=== PATIENT | male | born 1960 | race Caucasian/White ===

== ENCOUNTER → 2018-06-26 | Emergency (ER) | payer OTHER ==
[~2018-06-26] MED LIST: MORPHINE SULFATE 2 MG/ML VIAL ONE; morphine CARPU-JECT 2 MG/1 ML DISP.SYRIN IVPUSH ONE
[2018-06-26 19:23] VITALS: TEMP 98.4; BMI 38.4
--- NOTE | 2018-06-26 20:27 | PDOC ---
Attending Attestation - Resident Resident Name: Eleazar Anne - ED Attending Attestation I have performed the following: I have examined & evaluated the patient, The case was reviewed & discussed with the resident, I agree w/resident's findings & plan, Exceptions are as noted - HPI HPI: 06/26/18 20:23 57y M hx of asthma, copd, cad s/p cath, dvt s/p Ivc filter on xeralgo, spinal stenosis, lung ca s/p resection 2 months ago presents with episode of syncope in setting of standing up with ~5 min of LOC. No seizure like activity or incontinence. denies lighteahdedness, palpitations. endorses some nonradiationg midsternal chest pressure. +perineal TTP to L cervical spine and L lumbar spine L leg raise + normal gait cardiac: rrr, no mrg ddx: chronic back pain syncope: ekg/monitor to r/o arrythmia, labs to ro metabolic derangement consider acs - Physicial Exam PE: 06/26/18 21:30 see above - Medical Decision Making 06/26/18 21:23 pt requested to eat, but eloped shortly after we told him we would like to wait until after his imaging to rule out any acute problems
--- NOTE | 2018-06-26 20:43 | PDOC ---
History of Present Illness - General Chief Complaint: Chest Pain Stated Complaint: FALL Time Seen by Provider: 06/26/18 19:57 - History of Present Illness Initial Comments: 06/26/18 20:37 57 y/o M with PMH of athma, copd, DM, HTN, cardiac cath , multiple DVT RLE s/p IVC filter on xarelto, CA right lung s/p resection in [facility], spinal stenosis came to hospital because of syncopal episode which happen yesterday while he tried to stand. He reports he woke up after 5 minuter and the after few minutes again went to sleep. Denies irregular body movements, bleeding from mouth, tongue bite, bowel and fecal incontinence. Denies lightheadedness and palpitations. Reports today when he woke up he noticed a pain in his neck, numbness in his right leg and pain in right leg radiating from back to his leg. Denies urine incontinence. Didn't have bowel movement. Denies fever and chills. Past History - Past Medical History Allergies/Adverse Reactions: Allergies Allergy/AdvReac Type Severity Reaction Status Date / Time latex Allergy Severe Difficulty Verified 06/26/18 18:53 Breathing shellfish derived Allergy Verified 06/26/18 18:53 Home Medications: Ambulatory Orders Albuterol Sulfate Inhaler - [Ventolin HFA Inhaler -] 2 inh PO Q6H 04/12/15 Aspirin [ASA -] 81 mg PO DAILY 04/12/15 Doxazosin Mesylate 8 mg PO DAILY 04/12/15 Fluoxetine HCl [Prozac] 80 mg PO DAILY 04/12/15 Insulin Glargine,Hum.rec.anlog [Lantus (nf)] 30 units SQ HS 04/12/15 Insulin Lispro [Humalog] 100 unit SQ ASDIR 04/12/15 Ipratropium [place] [Atrovent Hfa] 12.9 gm IH DAILY PRN 04/12/15 Warfarin Sodium [Coumadin] 7 mg PO DAILY 04/12/15 metFORMIN HCL [Glucophage -] 1,000 mg PO BID 04/12/15 Atorvastatin Ca [Lipitor -] 10 mg PO HS 08/27/15 Cefuroxime Axetil [Ceftin] 500 mg PO BID #10 tablet 08/27/15 Cefuroxime Axetil [Cefuroxime] 500 mg PO BID 08/27/15 Clonazepam 1 mg PO TID 08/27/15 Enoxaparin Sodium [Lovenox] 80 mg SQ Q12H 08/27/15 Fluticasone/Salmeterol [Advair 250-50 Diskus] 1 each IH BID 08/27/15 Oxycodone HCl/Acetaminophen [Percocet 10-325 mg Tablet -] 1 - 2 tab PO Q4H 08/27 Oxycodone HCl/Acetaminophen [Percocet 5-325 mg Tablet -] 1 tab PO Q4H PRN #20 tablet 08/27/15 Tiotropium [place] [Spiriva -] 1 inh PO DAILY 08/27/15 Anemia: No Asthma: Yes Cancer: No Cardiac Disorders: Yes (CAD, [place] 1989 CARDIAC [id number]-DE STENTS) CVA: No COPD: Yes CHF: No Dementia: No Diabetes: Yes (IDDM) GI Disorders: No Disorders: No HTN: Yes Hypercholesterolemia: Yes Liver Disease: No Seizures: No Thyroid Disease: No - Surgical History Abdominal Surgery: No Appendectomy: No Cardiac Surgery: Yes (cardiac cath) Cholecystectomy: No Lung Surgery: No Neurologic Surgery: No Orthopedic Surgery: No - Immunization History Immunization Up to Date: No - Suicide/Smoking/Psychosocial Hx Smoking History: Current every day smoker Have you smoked in the past 12 months: Yes Number of Cigarettes Smoked Daily: 3 Information on smoking cessation initiated: No 'Breaking Loose' booklet given: 08/27/15 Hx Alcohol Use: No Drug/Substance Use Hx: No Substance Use Type: None Hx Substance Use Treatment: No Review of Systems - Review of Systems Constitutional: No: Chills, Diaphoresis, Fever HEENTM: No: Blurred Vision Respiratory: Yes: Cough, Wheezing, Other (reports chronic cough and wheezing ) Cardiac (ROS): Yes: Chest Pain, Syncope. No: Edema, Irregular Heart Rate, Lightheadedness, Palpitations : No: Burning, Discharge, Frequency, Flank Pain, Hematuria Musculoskeletal: Yes: Back Pain, Muscle Pain, Neck Pain Neurological: Yes: Numbness (right leg ). No: Seizure, Weakness *Physical Exam - Vital Signs Last Vital Signs Temp Pulse Resp BP Pulse Ox 98.4 F 74 18 130/80 99 06/26/18 18:53 06/26/18 18:53 06/26/18 18:53 06/26/18 18:53 06/26/18 18:53 - Physical Exam General Appearance: Yes: Appropriately Dressed HEENT: positive: EOMI, Normal Voice, Symmetrical Neck: positive: Tender (left paraspina area ), Trachea midline, Supple. negative: Rigidity Respiratory/Chest: positive: Lungs Clear, Wheezing (mild wheezing at bases, ). negative: Chest Tender, Respiratory Distress, Accessory Muscle Use Cardiovascular: positive: Regular Rhythm, Regular Rate, S1, S2. negative: Murmur Gastrointestinal/Abdominal: positive: Normal Bowel Sounds, Flat, Soft. negative : Guarding, Tenderness Musculoskeletal: positive: Normal Inspection. negative: CVA Tenderness Extremity: positive: Normal Inspection, Normal Range of Motion Neurologic: positive: academic services professional II-XII NML intact, Fully Oriented, Alert, Normal Mood/ Affect, Normal Response, Other (straight leg raising test positive, fine touch negative on right leg , able to stand and walk with cane ) ED Treatment Course - LABORATORY CBC & Chemistry Diagram: 06/26/18 20:40 06/26/18 20:40 - RADIOLOGY Radiology Studies Ordered: Category Date Time Status CERVICAL SPINE CT W/O CONTR [CT] Stat CT Scan 06/26/18 20:[address] WITHOUT CONTRAST [CT] Stat CT Scan 06/26/18 20:[address] W/O CONTRAST [CT] Stat CT Scan 06/26/18 20:16 Ordered CHEST - PA [RAD] Stat Radiology 06/26/18 20:17 Ordered HIP-RIGHT [RAD] Stat Radiology 06/26/18 20:18 Ordered Medical Decision Making - Medical Decision Making 06/26/18 20:47 57 y/o M with PMH of athma, copd, DM, HTN, cardiac cath , multiple DVT RLE s/p IVC filter on xarelto, CA right lung s/p resection in [facility], spinal stenosis came to hospital because of syncopal episode which happen yesterday while he tried to stand. He reports he woke up after 5 minuter and the after few minutes again went to sleep. Denies irregular body movements, bleeding from mouth, tongue bite, bowel and fecal incontinence. Denies lightheadedness and palpitations. Reports today when he woke up he noticed a pain in his neck, numbness in his right leg and pain in right leg radiating from back to his leg. Denies urine incontinence. Didn't have bowel movement. Denies fever and chills. we will get ct head, spine, xray hip. cbc/ cmp/ trop and ekg. orthostatic vitals no change. able to stand, walk and pee normal we will give him morphine for pain. 06/26/18 21:35 patient eloped *DC/Admit/Observation/Transfer Diagnosis at time of Disposition: Syncope Qualifiers: Syncope type: unspecified Qualified Code(s): R55 - Syncope and collapse - Discharge Dispostion Disposition: ELOPED - Referrals - Patient Instructions - Post Discharge Activity
[2018-06-26 20:48] LABS: BASO % 0.2 % (0-2.0); EOS % 1.4 % (0-4.5); HEMATOCRIT 46.2 % (35.4-49); HEMOGLOBIN 15.6 GM/dL (11.7-16.9); MCH 29.2 pg (25.7-33.7); MCHC 33.7 g/dl (32.0-35.9); MEAN CELL VOLUME 86.6 fl (80-96); MEAN PLT VOLUME 7.5 fl (7.5-11.1); MONO % 6.9 % (3.8-10.2); NEUT % 75.5 % (42.8-82.8); PLATELET COUNT 149 K/MM3 (134-434); RBC 5.33 M/mm3 (4.00-5.60); RDW 14.3 % (11.9-15.9); WHITE BLOOD COUNT 10.8 K/mm3 (4.0-10.0)
[2018-06-26 21:37] LABS: ALBUMIN 3.6 g/dl (3.4-5.0); ANION GAP 13 MMOL/L (8-16); BILIRUBIN,TOTAL 0.7 mg/dL (0.2-1.0); BLOOD UREA NITROGEN 65 mg/dL (7-18); CALCIUM 8.4 mg/dL (8.5-10.1); CHLORIDE 99 mmol/L (98-107); CO2 21 mmol/L (21-32); CREATININE 3.3 mg/dL (0.55-1.3); GLUCOSE,RANDOM 244 mg/dL (74-106); POTASSIUM 4.2 mmol/L (3.5-5.1); SGOT/AST 124 U/L (15-37); SGPT/ALT 61 U/L (13-61); SODIUM 133 mmol/L (136-145)
[2018-06-26 21:38] LABS: ALK PHOS 111 U/L (45-117)
[2018-06-26 22:49] VITALS: BP 130/75; PULSE 77
--- NOTE | 2018-06-27 21:26 | EKG ---
Test Reason : Blood Pressure : / mmHG Vent. Rate : 074 BPM Atrial Rate : 074 BPM P-R Int : 140 ms QRS Dur : 086 ms QT Int : 376 ms P-R-T Axes : 061 -06 062 degrees QTc Int : 417 ms NORMAL SINUS RHYTHM NONSPECIFIC T WAVE ABNORMALITY ABNORMAL ECG WHEN COMPARED WITH ECG OF 12-APR-2015 21:33, NO SIGNIFICANT CHANGE WAS FOUND Confirmed by JOHNNY QUEEN MD ([id number]) on 06/27/2018 9:25:52 PM Referred By: Confirmed By:JOHNNY QUEEN MD
== END | disposition left against medical advice (07) ==
LOC: JER 18:36
DX: R55 Syncope and collapse (principal); M54.2 Cervicalgia; M54.5 Low back pain; M79.604 Pain in right leg; I25.2 Old myocardial infarction; I25.10 Atherosclerotic heart disease of native coronary artery without angina pectoris; Z98.61 Coronary angioplasty status; I10 Essential (primary) hypertension; J44.9 Chronic obstructive pulmonary disease, unspecified; E11.9 Type 2 diabetes mellitus without complications; Z79.4 Long term (current) use of insulin; E70.0 Classical phenylketonuria; F17.210 Nicotine dependence, cigarettes, uncomplicated; Z85.118 Personal history of other malignant neoplasm of bronchus and lung; Z86.718 Personal history of other venous thrombosis and embolism; Z79.01 Long term (current) use of anticoagulants; Z95.828 Presence of other vascular implants and grafts
CPT/HCPCS: 36415; 80053; 84484; 85025; 93005; 93010; 99281-25

== ENCOUNTER 2019-03-18 21:28 | Observation (INO) | payer OTHER ==
[2019-03-18 21:38] VITALS: BMI 23.6
[2019-03-18] MEDS ORDERED: ALBUTEROL SO4 2.5/IPRATROPIUM 0.5 INH SOL 3 ML VIAL.NEB. NEB ONE (21:48)
[2019-03-18] MEDS: ALBUTEROL SO4 2.5/IPRATROPIUM 0.5 INH SOL 3 ML VIAL.NEB. NEB SCH ×4 (21:57→23:43)
--- NOTE | 2019-03-18 22:08 | PDOC ---
History of Present Illness - General History Source: Patient Exam Limitations: No Limitations - History of Present Illness Initial Comments: 03/18/19 22:29 58 year old male with PMH HTN, HLD, DM, CAD s/p CABG, multiple RLE DVT s/p IVC filter on AC, asthma, COPD, chronic back pain, spinal stenosis, TURP (2014) presented to ED for AMS. It was reported that patient ingested ETOH with Perocet today. Pt confirmed but was unable to specify how much ETOH or percocet he took. Denied suicidal/homicidal ideation. HPI/ROS limited by pt somnolence. <Marissa Franklin - Last Filed: 03/19/19 04:39> <Darshana Saenz - Last Filed: 03/19/19 05:00> - General Chief Complaint: Lethargy Stated Complaint: HYPOTENSION Time Seen by Provider: 03/18/19 21:37 Past History - Past Medical History Anemia: No Asthma: Yes Cancer: No Cardiac Disorders: Yes (CAD, [place] 1990 CARDIAC OAUW-[id number]-GM STENTS) CVA: No COPD: Yes CHF: No Dementia: No Diabetes: Yes (IDDM) GI Disorders: No Disorders: No HTN: Yes Hypercholesterolemia: Yes Liver Disease: No Seizures: No Thyroid Disease: No - Surgical History Abdominal Surgery: No Appendectomy: No Cardiac Surgery: Yes (cardiac cath) Cholecystectomy: No Lung Surgery: No Neurologic Surgery: No Orthopedic Surgery: No - Immunization History Immunization Up to Date: No - Suicide/Smoking/Psychosocial Hx Smoking History: Current every day smoker Have you smoked in the past 12 months: Yes Number of Cigarettes Smoked Daily: 20 Information on smoking cessation initiated: Yes 'Breaking Loose' booklet given: 08/27/15 Hx Alcohol Use: Yes Drug/Substance Use Hx: Yes Substance Use Type: None Hx Substance Use Treatment: No <Marissa Franklin - Last Filed: 03/19/19 04:39> <Darshana Saenz - Last Filed: 03/19/19 05:00> - Past Medical History Allergies/Adverse Reactions: Allergies Allergy/AdvReac Type Severity Reaction Status Date / Time latex Allergy Severe Difficulty Verified 03/18/19 21:38 Breathing shellfish derived Allergy Verified 03/18/19 21:38 Home Medications: Ambulatory Orders Albuterol Sulfate Inhaler - [Ventolin HFA Inhaler -] 2 inh PO Q6H 04/12/15 Aspirin [ASA -] 81 mg PO DAILY 04/12/15 Doxazosin Mesylate 8 mg PO DAILY 04/12/15 Fluoxetine HCl [Prozac] 80 mg PO DAILY 04/12/15 Insulin Glargine,Hum.rec.anlog [Lantus (nf)] 30 units SQ HS 04/12/15 Insulin Lispro [Humalog] 100 unit SQ ASDIR 04/12/15 Ipratropium [place] [Atrovent Hfa] 12.9 gm IH DAILY PRN 04/12/15 Warfarin Sodium [Coumadin] 7 mg PO DAILY 04/12/15 metFORMIN HCL [Glucophage -] 1,000 mg PO BID 04/12/15 Atorvastatin Ca [Lipitor -] 10 mg PO HS 08/27/15 Cefuroxime Axetil [Ceftin] 500 mg PO BID #10 tablet 08/27/15 Cefuroxime Axetil [Cefuroxime] 500 mg PO BID 08/27/15 Clonazepam 1 mg PO TID 08/27/15 Enoxaparin Sodium [Lovenox] 80 mg SQ Q12H 08/27/15 Fluticasone/Salmeterol [Advair 250-50 Diskus] 1 each IH BID 08/27/15 Oxycodone HCl/Acetaminophen [Percocet 10-325 mg Tablet -] 1 - 2 tab PO Q4H 08/27 Oxycodone HCl/Acetaminophen [Percocet 5-325 mg Tablet -] 1 tab PO Q4H PRN #20 tablet 08/27/15 Tiotropium [place] [Spiriva -] 1 inh PO DAILY 08/27/15 Review of Systems - Review of Systems Able to Perform ROS?: No (Pt is somnolent) <Marissa Franklin - Last Filed: 03/19/19 04:39> *Physical Exam - Vital Signs Last Vital Signs Temp Pulse Resp BP Pulse Ox 97.5 F L 87 16 111/70 95 03/18/19 21:31 03/18/19 21:31 03/18/19 21:31 03/18/19 21:31 03/18/19 21:31 - Physical Exam Comments: 03/18/19 22:27 Constitutional: Well-nourished, Well-developed, appearing stated age. HEENT: head is normocephalic, atraumatic. EOMI. PERRLA. Eyes: Pupils pinpoint bilaterally. Neck: supple. Full ROM. Heart: regular rhythm. no murmurs, rubs or gallops. Lungs: diffuse rhonchi bilaterally. Abdomen: soft, nontender. normal bowel sounds. no rebound, guarding, masses. Extremities: peripheral pulses intact. no lower extremity edema. Neurological: CN 2-12 grossly intact. moves all four extremities. Psych: somnolent but arousable to voice. oriented x3. follows commands. <Marissa Franklin - Last Filed: 03/19/19 04:39> - Vital Signs Last Vital Signs Temp Pulse Resp BP Pulse Ox 97.5 F L 79 13 116/86 97 03/18/19 21:31 03/19/19 03:43 03/19/19 03:43 03/19/19 03:43 03/19/19 03:43 <Darshana Saenz - Last Filed: 03/19/19 05:00> ED Treatment Course - LABORATORY CBC & Chemistry Diagram: 03/18/19 22:15 03/18/19 22:15 <Marissa Franklin - Last Filed: 03/19/19 04:39> - LABORATORY CBC & Chemistry Diagram: 03/18/19 22:15 03/18/19 22:15 - ADDITIONAL ORDERS Additional order review: Laboratory Results 03/19/19 03/18/19 03/18/19 00:08 22:15 22:15 PT with INR INR PTT (Actin FS) Sodium 136 Potassium 4.5 Chloride 104 Carbon Dioxide 24 Anion Gap 8 BUN 29.4 H Creatinine 1.7 H Est GFR (CKD-EPI)AfAm 49.70 Est GFR (CKD-EPI)NonAf 42.88 Random Glucose 251 H Calcium 8.4 L Phosphorus 4.5 Magnesium 2.1 Total Bilirubin 0.3 AST 18 ALT 21 Alkaline Phosphatase 102 Troponin I < 0.02 B-Natriuretic Peptide 335.7 H Total Protein 6.5 Albumin 3.2 L TSH 4.90 H Free T4 1.11 Salicylates 2.3 L Acetaminophen < 2.0 L Alcohol, Quantitative < 3.0 03/18/19 22:15 PT with INR 11.10 INR 0.94 PTT (Actin FS) 32.0 Sodium Potassium Chloride Carbon Dioxide Anion Gap BUN Creatinine Est GFR (CKD-EPI)AfAm Est GFR (CKD-EPI)NonAf Random Glucose Calcium Phosphorus Magnesium Total Bilirubin AST ALT Alkaline Phosphatase Troponin I B-Natriuretic Peptide Total Protein Albumin TSH Free T4 Salicylates Acetaminophen Alcohol, Quantitative 03/18/19 22:15 RBC 4.85 MCV 88.6 MCHC 33.9 RDW 14.1 MPV 6.8 L Neutrophils % 52.1 D Lymphocytes % 36.7 D Monocytes % 7.6 Eosinophils % 2.9 D Basophils % 0.7 D - Medications Given in the ED: ED Medications Discontinued Medications Generic Name Dose Route Start Last Admin Trade Name Freq PRN Reason Stop Dose Admin Albuterol/Ipratropium 1 amp 03/18/19 21:45 03/18/19 23:43 Duoneb - NEB 03/18/19 22:31 1 amp Q15M LALO Administration <Darshana Saenz - Last Filed: 03/19/19 05:00> Medical Decision Making - Medical Decision Making 03/18/19 22:28 58 year old male with above PMH BIBA to ED for AMS after drinking ETOH and using Percocet. Initial Vital Signs Temp Pulse Resp BP Pulse Ox 97.5 F L 87 16 111/70 95 03/18/19 21:31 03/18/19 21:31 03/18/19 21:31 03/18/19 21:31 03/18/19 21:31 Afebrile. No tachycardia. NO tachypnea. No hypotension. No hypoxia on room air. Labs ordered: CBC, CMP, troponin, TSH, VBG, acetaminophen, salicyclate, UA/UC/ UDS, troponin, BNP, ETOH level Imaging ordered: CXR Medications ordered: Duoneb x3 EKG performed at 0019: rate 80, regular rhythm, normal axis, normal intervals, QTc 461, flat T in I, flipped T in aVL. Similar to prior EKG performed 06/26/18. 03/18/19 23:48 CBC WBC 11.4 K/mm3 (4.0-10.0) H 03/18/19 22:15 RBC 4.85 M/mm3 (4.00-5.60) 03/18/19 22:15 Hgb 14.6 GM/dL (11.7-16.9) 03/18/19 22:15 Hct 43.0 % (35.4-49) 03/18/19 22:15 MCV 88.6 fl (80-96) 03/18/19 22:15 MCH 30.0 pg (25.7-33.7) 03/18/19 22:15 MCHC 33.9 g/dl (32.0-35.9) 03/18/19 22:15 RDW 14.1 % (11.9-15.9) 03/18/19 22:15 Plt Count 197 K/MM3 (134-434) D 03/18/19 22:15 MPV 6.8 fl (7.5-11.1) L 03/18/19 22:15 Absolute Neuts (auto) 5.9 K/mm3 (1.5-8.0) 03/18/19 22:15 Neutrophils % 52.1 % (42.8-82.8) D 03/18/19 22:15 Lymphocytes % 36.7 % (8-40) D 03/18/19 22:15 Monocytes % 7.6 % (3.8-10.2) 03/18/19 22:15 Eosinophils % 2.9 % (0-4.5) D 03/18/19 22:15 Basophils % 0.7 % (0-2.0) D 03/18/19 22:15 Nucleated RBC % 0 % (0-0) 03/18/19 22:15 Platelet Estimate Adequate 03/18/19 22:15 Platelet Comment Slide scanned 03/18/19 22:15 Leukocytosis with no left shift. No anemia. CMP Sodium 136 mmol/L (136-145) 03/18/19 22:15 Potassium 4.5 mmol/L (3.5-5.1) 03/18/19 22:15 Chloride 104 mmol/L (98-107) 03/18/19 22:15 Carbon Dioxide 24 mmol/L (21-32) 03/18/19 22:15 Anion Gap 8 MMOL/L (8-16) 03/18/19 22:15 BUN 29.4 mg/dL (7-18) H 03/18/19 22:15 Creatinine 1.7 mg/dL (0.55-1.3) H 03/18/19 22:15 Est GFR (CKD-EPI)AfAm 49.70 03/18/19 22:15 Est GFR (CKD-EPI)NonAf 42.88 03/18/19 22:15 Random Glucose 251 mg/dL (74-106) H 03/18/19 22:15 Calcium 8.4 mg/dL (8.5-10.1) L 03/18/19 22:15 Phosphorus 4.5 mg/dL (2.5-4.9) 03/18/19 22:15 Magnesium 2.1 mg/dL (1.8-2.4) 03/18/19 22:15 Total Bilirubin 0.3 mg/dL (0.2-1) 03/18/19 22:15 AST 18 U/L (15-37) 03/18/19 22:15 ALT 21 U/L (13-61) 03/18/19 22:15 Alkaline Phosphatase 102 U/L (45-117) 03/18/19 22:15 Troponin I < 0.02 ng/ml (0.00-0.05) 03/18/19 22:15 B-Natriuretic Peptide 335.7 pg/ml (5-125) H 03/18/19 22:15 Total Protein 6.5 g/dl (6.4-8.2) 03/18/19 22:15 Albumin 3.2 g/dl (3.4-5.0) L 03/18/19 22:15 TSH 4.90 uIU/ml (0.358-3.74) H 03/18/19 22:15 No electrolyte abnormalities. RUBY No transaminitis. Troponin wnl. BNP elevation. Mildly elevated TSH. -Free T4 added on Salicyclate, acetaminophen and ETOH level negative. 03/19/19 01:08 Free T4 normal. 03/19/19 01:44 Vital Signs Temperature 97.5 F L 03/18/19 21:31 Pulse Rate 80 03/19/19 01:43 Respiratory Rate 20 03/19/19 01:43 Blood Pressure 122/85 03/19/19 01:43 O2 Sat by Pulse Oximetry (%) 100 03/19/19 01:43 Vitals stable. Pt reassessed, sleeping comfortably, somnolent but arousable to voice, follows commands. 03/19/19 02:55 Vital Signs Temperature 97.5 F L 03/18/19 21:31 Pulse Rate 80 03/19/19 02:28 Respiratory Rate 20 03/19/19 02:28 Blood Pressure 116/86 03/19/19 02:28 O2 Sat by Pulse Oximetry (%) 98 03/19/19 02:28 Pt reassessed, somnolent, arousable to voice, answers questions appropriately but requires repeated verbal stimulation. No hypoxia on room air. 03/19/19 04:36 CT head report: EXAM: CT HEAD WITHOUT CONTRAST: No acute brain parenchymal abnormality. No hemorrhage, mass or acute territorial infarct. Age-related involutional changes. Fixation anterior wall right maxillary sinus and right zygomaticofrontal complex. Chronic fracture lateral wall right orbit. Asymmetry right nasal bone, possibly congenital/developmental or post-traumatic. Clear visualized paranasal sinuses. Visualized mastoid air cells clear. Pt reassessed, somnolent but arousable to voice, oriented x3, answers questions appropriately but requires repeated verbal stimulation. Pt continually dozing off, cannot give a reliable history, pt will need to be observed for a longer amount of time. Pt to be admitted. <Marissa Franklin - Last Filed: 03/19/19 04:39> *DC/Admit/Observation/Transfer - Discharge Dispostion Decision to Admit order: Yes <Marissa Franklin - Last Filed: 03/19/19 04:39> - Discharge Dispostion Decision to Admit order: Yes Decision to Admit order Date/Time: 03/19/19 05:00 <Darshana Saenz - Last Filed: 03/19/19 05:00> Diagnosis at time of Disposition: Altered mental status, Opioid intoxication without complication, COPD (chronic obstructive pulmonary disease) - Discharge Dispostion Condition at time of disposition: Stable - Referrals Referrals: Fely Espinoza MD [Primary Care Provider] - - Patient Instructions - Post Discharge Activity
[2019-03-18 22:31] LABS: BASO % 0.7 % (0-2.0); EOS % 2.9 % (0-4.5); HEMOGLOBIN 14.6 GM/dL (11.7-16.9); LYMPH % 36.7 % (8-40); MCHC 33.9 g/dl (32.0-35.9); MEAN CELL VOLUME 88.6 fl (80-96); MEAN PLT VOLUME 6.8 fl (7.5-11.1); MONO % 7.6 % (3.8-10.2); NEUT % 52.1 % (42.8-82.8); PLATELET COUNT 197 K/MM3 (134-434); RBC 4.85 M/mm3 (4.00-5.60); RDW 14.1 % (11.9-15.9); WHITE BLOOD COUNT 11.4 K/mm3 (4.0-10.0)
[2019-03-18 22:44] LABS: PLATELET ESTIMATE ADEQUATE
[2019-03-18 22:57] LABS: INR 0.94 (0.83-1.09); PROTHROMBIN TIME (PATIENT) 11.1 SEC (9.7-13.0)
[2019-03-18 23:06] LABS: ALBUMIN 3.2 g/dl (3.4-5.0); ALK PHOS 102 U/L (45-117); ANION GAP 8 MMOL/L (8-16); BILIRUBIN,TOTAL 0.3 mg/dL (0.2-1); BLOOD UREA NITROGEN 29.4 mg/dL (7-18); CALCIUM 8.4 mg/dL (8.5-10.1); CHLORIDE 104 mmol/L (98-107); CO2 24 mmol/L (21-32); CREATININE 1.7 mg/dL (0.55-1.3); GLUCOSE,RANDOM 251 mg/dL (74-106); MAGNESIUM 2.1 mg/dL (1.8-2.4); N-TERMINAL BNP 335.7 pg/ml (5-125); PHOSPHOROUS 4.5 mg/dL (2.5-4.9); POTASSIUM 4.5 mmol/L (3.5-5.1); SGOT/AST 18 U/L (15-37); SGPT/ALT 21 U/L (13-61); SODIUM 136 mmol/L (136-145); TOT PROT 6.5 g/dl (6.4-8.2)
--- NOTE | 2019-03-18 23:27 | PDOC ---
Attending Attestation - Resident Resident Name: Marissa Franklin - ED Attending Attestation I have performed the following: I have examined & evaluated the patient, The case was reviewed & discussed with the resident, I agree w/resident's findings & plan - HPI HPI: 03/19/19 00:07 58 year old male with PMH HTN, HLD, DM, CAD s/p CABG, multiple RLE DVT s/p IVC filter on AC, asthma, COPD, chronic back pain, spinal stenosis presented to ED for AMS, reportedly from Etoh and percocet ingestion today. 03/19/19 00:07 - Physicial Exam PE: 03/19/19 00:07 Agree with the resident's HPI and PE as documented in the electronic medical record. NAD, somnolent, but arousable. EOMI, PERRL, MMM, nl conjunctiva, anicteric; neck supple. lungs b/l rhonchi, RRR, abdomen soft nontender. Back nontender. ADAMES x4, no focal neuro deficits. No peripheral edema. normal color for ethnicity , WWP. no tenderness. - Medical Decision Making 03/19/19 00:08 hpi as documented VS reviewed wnl. on end tidal co2, maintaining co2 >40, sats >95% on RA given nebs for rhonchi, known h/o copd known poor respiratory reserve pinpoint pupils reversing. alcohol and tox panel neg. tyl/salicyclate level neg likely percocet ingestion, monitor closely. labs and lytes normal CXR unremarkable. CT head neg for bleed/mass/CVA. old orbital fx. trop neg, EKG_NSR at 80 bpm nonspecific T wave abnormalities in I/AVL observed in the ED closely, no events, waking up slowly, but remains somnolent and somewhate arousable. likely percocet effect. observed in 7 hours in ED, s/o night hospitalist team for continued tele monitoring and wearing off of opioid effect. no narcan indicated as no desats and maintaining Endtidal CO2. 03/19/19 02:10 03/19/19 04:55 Heart Score/ECG Review #1 ECG reviewed & interpreted by me at: 00:20 General ECG Interpretation: Sinus Rhythm, Normal Rate, Normal Intervals, No acute ischemic changes Compared to previous ECG there are: No significant change 03/19/19 02:12 EKG_NSR at 80 bpm nonspecific T wave abnormalities in I/AVL
--- NOTE | 2019-03-19 04:50 | PN ---
Teaching Attending Note Name of Resident: Chucho Hardin ATTENDING PHYSICIAN STATEMENT I saw and evaluated the patient. I reviewed the resident's note and discussed the case with the resident. I agree with the resident's findings and plan as documented. SUBJECTIVE: Patient is a 58 year old man with PMH of HTN, HLD, DM, CAD s/p CABG, multiple RLE DVT s/p IVC filter on AC, asthma, COPD, recent right lung resection for cancer, chronic back pain, spinal stenosis, TURP (2014) who presents to the ER for AMS. It was reported that patient ingested ETOH with Perocet today. Patient confirmed but was unable to specify how much ETOH or percocet he took. Syas he takes the percocet for low back pain and that he continues to have chest pain at the site of his CABG surgical scar. Denies fever, chills, headache, SOB, abdominal pain, diarrhea or dysuria. Denies suicidal or homicidal ideation. History limited by patient's somnolence. OBJECTIVE: Somnolent but arousable Vital Signs Period Temp Pulse Resp BP Sys/Fabian Pulse Ox Last 24 Hr 97.5 F 79-88 13-20 111-122/70-86 95-100 HEENT: No Jaundice, eye redness or discharge, PERRLA, EOMI. Normocephalic, atraumatic. External ears are normal and hearing is grossly intact. No nasal discharge. Neck: Supple, nontender. No palpable adenopathy or thyromegaly. No JVD Chest: Good effort. Clear to auscultation and percussion. Heart: Regular. No S3, rub or murmur Abdomen: Not distended, soft, nontender and no HSM. No rebound or guarding. Normal bowel sounds. Ext: Peripheral pulses intact. No leg edema. Skin: Warm and dry. No petechiae, rash or ecchymosis. Neuro: Somnolent but readily arousable. Oriented x3. CN 2-12 grossly intact. Sensation grossly intact in all four extremities and DTR are symmetric. Psych: Appropriate mood and affect. Poor insight. Home Medications Medication Instructions Recorded Albuterol Sulfate Inhaler - 2 inh PO Q6H 04/12/15 [Ventolin HFA Inhaler -] Aspirin [ASA -] 81 mg PO DAILY 04/12/15 Doxazosin Mesylate 8 mg PO DAILY 04/12/15 Fluoxetine HCl [Prozac] 80 mg PO DAILY 04/12/15 Insulin Glargine,Hum.rec.anlog 30 units SQ HS 04/12/15 [Lantus (nf)] Insulin Lispro [Humalog] 100 unit SQ ASDIR 04/12/15 Ipratropium [place] [Atrovent Hfa] 12.9 gm IH DAILY PRN 04/12/15 Warfarin Sodium [Coumadin] 7 mg PO DAILY 04/12/15 metFORMIN HCL [Glucophage -] 1,000 mg PO BID 04/12/15 Atorvastatin Ca [Lipitor -] 10 mg PO HS 08/27/15 Cefuroxime Axetil [Ceftin] 500 mg PO BID #10 tablet 08/27/15 Cefuroxime Axetil [Cefuroxime] 500 mg PO BID 08/27/15 Clonazepam 1 mg PO TID 08/27/15 Enoxaparin Sodium [Lovenox] 80 mg SQ Q12H 08/27/15 Fluticasone/Salmeterol [Advair 1 each IH BID 08/27/15 250-50 Diskus] Oxycodone HCl/Acetaminophen 1 - 2 tab PO Q4H 08/27/15 [Percocet 10-325 mg Tablet -] Oxycodone HCl/Acetaminophen 1 tab PO Q4H PRN #20 tablet 08/27/15 [Percocet 5-325 mg Tablet -] Tiotropium [place] [Spiriva -] 1 inh PO DAILY 08/27/15 Abnormal Lab Results 03/18/19 03/18/19 03/18/19 22:15 22:15 22:15 WBC 11.4 H MPV 6.8 L BUN 29.4 H Creatinine 1.7 H Random Glucose 251 H Calcium 8.4 L B-Natriuretic Peptide 335.7 H Albumin 3.2 L TSH 4.90 H Salicylates 2.3 L Acetaminophen < 2.0 L ASSESSMENT AND PLAN: 1. Altered mental status - Etiology unclear, but most likely related to effects of alcohol and drug ingestion. No acute abnormality CXR and head CT. Urine toxicology screen is negative. EKG shows NSR with no significant ST-T wave changes. Leukocytosis may be stress reaction but urinalysis is pending. Will treat with IV NS to enhance renal clearance of any illicit drugs. Consult neurology. Implement [facility] alcohol withdrawal protocol and do neurochecks. Implement seizure, fall and aspiration precautions. Treat with thiamine and folic acid and monitor electrolytes (Ca,Mg,K,P). Counseled patient about abstaining from alcohol. Will consult land conservation specialist and refer to alcohol detox upon discharge. 2. Hypoalbuminemia - Possibly due to combined effects of malnutrition and inflammation associated with comorbid chronic conditions. Will ensure adequate dietary protein intake and also consult hotbed lever operator. 3. DM For now, we will hold the home diabetes drugs and implement sliding scale insulin regimen. Provide comprehensive diabetes care with patient teaching and counseling about the importance of adherence to prescribed diabetes regimen, euglycemia, eye care and foot care. 4. Tobacco Use Counseled on risks associated with tobacco use. We will provide patient all the necessary assistance to facilitate smoking cessation and prescribe Nicotine patch. 5. RUBY - .Etiology unclear. Will check CPK, get kidney sonogram and monitor urine output. Being hydrated. Consult nephrology and avoid nephrotoxic agents such as NSAIDS, aminoglycosides, contrast dyes and certain Alternative medicine products. 6. Hypertension - Restart suitable outpatient antihypertensive drugs when clinically appropriate. Revise regimen to ensure good BP control. Nonpharmacologic measures to control hypertension like weight loss, salt restriction and exercise discussed. 7. DVT prophylaxis - On Coumadin?? 8. Advance directives - Full code
--- NOTE | 2019-03-19 05:26 | HP ---
CHIEF COMPLAINT: AMS PCP: Fely Espinoza HISTORY OF PRESENT ILLNESS: 58 y/o M w/ PMHx HTN, HLD, DM, CAD s/p CABG, multiple RLE DVT s/p IVC filter on AC, asthma, COPD, chronic back pain, spinal stenosis, TURP (2014) presented to ED for AMS. It was reported that patient ingested ETOH with Perocet today. Pt confirmed but was unable to specify how much ETOH or percocet he took. Denied suicidal/homicidal ideation. HPI/ROS limited by pt somnolence. Recent Travel: PAST MEDICAL HISTORY: As per HPI PAST SURGICAL HISTORY: As per HPI Social History: Smoking: Alcohol: Drugs: Family History: Allergies latex Allergy (Severe, Verified 03/18/19 21:38) Difficulty Breathing shellfish derived Allergy (Verified 03/18/19 21:38) HOME MEDICATIONS: Home Medications Medication Instructions Recorded Albuterol Sulfate Inhaler - 2 inh PO Q6H 04/12/15 [Ventolin HFA Inhaler -] Aspirin [ASA -] 81 mg PO DAILY 04/12/15 Doxazosin Mesylate 8 mg PO DAILY 04/12/15 Fluoxetine HCl [Prozac] 80 mg PO DAILY 04/12/15 Insulin Glargine,Hum.rec.anlog 30 units SQ HS 04/12/15 [Lantus (nf)] Insulin Lispro [Humalog] 100 unit SQ ASDIR 04/12/15 Ipratropium [place] [Atrovent Hfa] 12.9 gm IH DAILY PRN 04/12/15 Warfarin Sodium [Coumadin] 7 mg PO DAILY 04/12/15 metFORMIN HCL [Glucophage -] 1,000 mg PO BID 04/12/15 Atorvastatin Ca [Lipitor -] 10 mg PO HS 08/27/15 Cefuroxime Axetil [Ceftin] 500 mg PO BID #10 tablet 08/27/15 Cefuroxime Axetil [Cefuroxime] 500 mg PO BID 08/27/15 Clonazepam 1 mg PO TID 08/27/15 Enoxaparin Sodium [Lovenox] 80 mg SQ Q12H 08/27/15 Fluticasone/Salmeterol [Advair 1 each IH BID 08/27/15 250-50 Diskus] Oxycodone HCl/Acetaminophen 1 - 2 tab PO Q4H 08/27/15 [Percocet 10-325 mg Tablet -] Oxycodone HCl/Acetaminophen 1 tab PO Q4H PRN #20 tablet 08/27/15 [Percocet 5-325 mg Tablet -] Tiotropium [place] [Spiriva -] 1 inh PO DAILY 08/27/15 REVIEW OF SYSTEMS limited, as per HPI PHYSICAL EXAMINATION Vital Signs - 24 hr 03/18/19 03/18/19 03/19/19 21:31 22:35 01:27 Temperature 97.5 F L Pulse Rate 87 88 Pulse Rate [ 80 Right] Respiratory 16 18 Rate Blood Pressure 111/70 Blood Pressure 122/85 [Right] O2 Sat by Pulse 95 96 100 Oximetry (%) 03/19/19 03/19/19 03/19/19 01:43 02:28 03:43 Temperature Pulse Rate Pulse Rate [ 80 80 79 Right] Respiratory 20 20 13 Rate Blood Pressure Blood Pressure 122/85 116/86 116/86 [Right] O2 Sat by Pulse 100 98 97 Oximetry (%) GENERAL: Somnolent but arousable, fully oriented HEENT: NC/AT, pinpoint pupils, MMM LUNGS: mild diffuse wheezing, poor compliance with examination HEART: RRR no m/r/g ABDOMEN: +bs, soft, NT, ND UPPER EXTREMITIES: 2+ pulses, warm, well-perfused. No cyanosis. No clubbing. No peripheral edema. LOWER EXTREMITIES: 2+ pulses, warm, well-perfused. No calf tenderness. No peripheral edema. NEUROLOGICAL: limited exam, no deficits appreciated PSYCHIATRIC: denies suicidal ideation SKIN: Warm, dry, normal turgor Laboratory Results - last 24 hr 03/18/19 03/18/19 03/18/19 22:15 22:15 22:15 WBC 11.4 H RBC 4.85 Hgb 14.6 Hct 43.0 MCV 88.6 MCH 30.0 MCHC 33.9 RDW 14.1 Plt Count 197 D MPV 6.8 L Absolute Neuts (auto) 5.9 Neutrophils % 52.1 D Lymphocytes % 36.7 D Monocytes % 7.6 Eosinophils % 2.9 D Basophils % 0.7 D Nucleated RBC % 0 Platelet Estimate Adequate Platelet Comment Slide scanned PT with INR 11.10 INR 0.94 PTT (Actin FS) 32.0 Sodium 136 Potassium 4.5 Chloride 104 Carbon Dioxide 24 Anion Gap 8 BUN 29.4 H Creatinine 1.7 H Est GFR (CKD-EPI)AfAm 49.70 Est GFR (CKD-EPI)NonAf 42.88 Random Glucose 251 H Calcium 8.4 L Phosphorus 4.5 Magnesium 2.1 Total Bilirubin 0.3 AST 18 ALT 21 Alkaline Phosphatase 102 Troponin I < 0.02 B-Natriuretic Peptide 335.7 H Total Protein 6.5 Albumin 3.2 L TSH 4.90 H Free T4 Salicylates Acetaminophen Alcohol, Quantitative 03/18/19 03/19/19 22:15 00:08 WBC RBC Hgb Hct MCV MCH MCHC RDW Plt Count MPV Absolute Neuts (auto) Neutrophils % Lymphocytes % Monocytes % Eosinophils % Basophils % Nucleated RBC % Platelet Estimate Platelet Comment PT with INR INR PTT (Actin FS) Sodium Potassium Chloride Carbon Dioxide Anion Gap BUN Creatinine Est GFR (CKD-EPI)AfAm Est GFR (CKD-EPI)NonAf Random Glucose Calcium Phosphorus Magnesium Total Bilirubin AST ALT Alkaline Phosphatase Troponin I B-Natriuretic Peptide Total Protein Albumin TSH Free T4 1.11 Salicylates 2.3 L Acetaminophen < 2.0 L Alcohol, Quantitative < 3.0 ASSESSMENT/PLAN: 58 y/o M w/ PMHx HTN, HLD, DM, CAD s/p CABG, multiple RLE DVT s/p IVC filter on AC, asthma, COPD, chronic back pain, spinal stenosis, TURP (2014) presented to ED for AMS, per sign out ingested EtOH and percocet of unknown quantity prior to presentation #AMS -etiology unclear -HCT negative -UTox unremarkable, UA/UCx pending -Cr 1.7, was 3.3 Jun 2018 -TSH mildly elevated 4.9, FT4 wnl -WBC mildly elevated 11.4 w/o left shift -afebrile -pinpoint pupils suggestive of narcotic ingestion -maintaining respiratory status well -consulted neurology -NS @ 100cc/hr -CPK ordered #DM -BGM, SSI #chronic cardiac/pulmonary conditions -requires medication reconciliation, no active issues -anticoagulation status unknown, subq heparin ordered at this time #FEN -NS 100 -repeat BMP -NPO pending neuro evaluation #PPx -heparin subq at this time, reportedly on warfarin and requiring med rec #code -full #dispo -admit for observation Visit type - Emergency Visit Emergency Visit: Yes ED Registration Date: 03/19/19 Care time: The patient presented to the Emergency Department on the above date and was hospitalized for further evaluation of their emergent condition. - New Patient This patient is new to me today: Yes Date on this admission: 03/19/19 - Critical Care Critical Care patient: No
[2019-03-19] MEDS ORDERED: SODIUM CHLORIDE 1,000 ML IV SCH (05:30)
[2019-03-19] MEDS ORDERED: HEPARIN NA (PORCINE) 5,000 UNITS/ML 1ML VIAL SQ SCH (06:00)
[2019-03-19 06:25] LABS: BASO % 0.5 % (0-2.0); EOS % 3.1 % (0-4.5); HEMATOCRIT 40.9 % (35.4-49); HEMOGLOBIN 14.1 GM/dL (11.7-16.9); LYMPH % 35.6 % (8-40); MCH 30.6 pg (25.7-33.7); MCHC 34.5 g/dl (32.0-35.9); MEAN CELL VOLUME 88.6 fl (80-96); MEAN PLT VOLUME 6.8 fl (7.5-11.1); MONO % 7.5 % (3.8-10.2); NEUT % 53.3 % (42.8-82.8); RBC 4.61 M/mm3 (4.00-5.60); WHITE BLOOD COUNT 8.2 K/mm3 (4.0-10.0)
[2019-03-19] MEDS ORDERED: HEPARIN NA (PORCINE) 5,000 UNITS/ML 1ML VIAL ONE (06:28)
[2019-03-19 06:30] VITALS: BP 130/80; PULSE 73; TEMP 98.1
[2019-03-19] MEDS ORDERED: INSULIN (NOVOLOG) ASPART 100 UNITS/ML 10ML VIAL ONE (06:35)
[2019-03-19 06:56] LABS: BLOOD UREA NITROGEN 32.5 mg/dL (7-18); CALCIUM 8.3 mg/dL (8.5-10.1); CREATININE 1.7 mg/dL (0.55-1.3); MAGNESIUM 1.9 mg/dL (1.8-2.4); PHOSPHOROUS 5.6 mg/dL (2.5-4.9); POTASSIUM 4.8 mmol/L (3.5-5.1)
[2019-03-19] MEDS ORDERED: INSULIN SLIDING SCALE (NOVOLOG) 1 VIAL SQ SCH (07:00)
[2019-03-19 07:18] LABS: PLATELET ESTIMATE ADEQUATE
--- NOTE | 2019-03-19 08:20 | PDOC ---
*Physical Exam - Vital Signs Last Vital Signs Temp Pulse Resp BP Pulse Ox 98.1 F 73 15 130/80 99 03/19/19 06:29 03/19/19 06:29 03/19/19 06:29 03/19/19 06:29 03/19/19 06:29 ED Treatment Course - LABORATORY CBC & Chemistry Diagram: 03/19/19 05:50 03/19/19 05:50 - ADDITIONAL ORDERS Additional order review: Laboratory Results 03/19/19 03/18/19 03/18/19 00:08 22:15 22:15 PT with INR INR PTT (Actin FS) Sodium 136 Potassium 4.5 Chloride 104 Carbon Dioxide 24 Anion Gap 8 BUN 29.4 H Creatinine 1.7 H Est GFR (CKD-EPI)AfAm 49.70 Est GFR (CKD-EPI)NonAf 42.88 Random Glucose 251 H Calcium 8.4 L Phosphorus 4.5 Magnesium 2.1 Total Bilirubin 0.3 AST 18 ALT 21 Alkaline Phosphatase 102 Troponin I < 0.02 B-Natriuretic Peptide 335.7 H Total Protein 6.5 Albumin 3.2 L TSH 4.90 H Free T4 1.11 Salicylates 2.3 L Acetaminophen < 2.0 L Alcohol, Quantitative < 3.0 03/18/19 22:15 PT with INR 11.10 INR 0.94 PTT (Actin FS) 32.0 Sodium Potassium Chloride Carbon Dioxide Anion Gap BUN Creatinine Est GFR (CKD-EPI)AfAm Est GFR (CKD-EPI)NonAf Random Glucose Calcium Phosphorus Magnesium Total Bilirubin AST ALT Alkaline Phosphatase Troponin I B-Natriuretic Peptide Total Protein Albumin TSH Free T4 Salicylates Acetaminophen Alcohol, Quantitative 03/18/19 22:15 RBC 4.85 MCV 88.6 MCHC 33.9 RDW 14.1 MPV 6.8 L Neutrophils % 52.1 D Lymphocytes % 36.7 D Monocytes % 7.6 Eosinophils % 2.9 D Basophils % 0.7 D - Medications Given in the ED: ED Medications Discontinued Medications Generic Name Dose Route Start Last Admin Trade Name Freq PRN Reason Stop Dose Admin Albuterol/Ipratropium 1 amp 03/18/19 21:45 03/18/19 23:43 Duoneb - NEB 03/18/19 22:31 1 amp [id number] LALO Administration Medical Decision Making - Medical Decision Making 03/19/19 08:20 Patient now awake alert and oriented 3. States that he accidentally took one of his extra pain pills last night and this is why he was lethargic. States she has never done this before. There was no intention to hurt himself. Patient is apologetic that this happened is aware of the dangers of not taking his medications exactly as prescribed Given that patient is alert and oriented is ambulating around the emergency department with steady gait he is requesting to sign out AGAINST MEDICAL ADVICE from the hospital. Hospitalist paged Patient anxious to leave. Has been observed for the last 10 hours hemodynamically stable has insight into disease process is clear from distracting injury AMA form signed *DC/Admit/Observation/Transfer Diagnosis at time of Disposition: Altered mental status, Opioid intoxication without complication, COPD (chronic obstructive pulmonary disease) - Discharge Dispostion Condition at time of disposition: Stable - Referrals - Patient Instructions - Post Discharge Activity
[2019-03-19 08:28] LABS: PLATELET COUNT 272 K/MM3 (134-434)
--- NOTE | 2019-03-19 08:30 | DS ---
Physical Exam: SUBJECTIVE: Patient seen and examined OBJECTIVE: Vital Signs Period Temp Pulse Resp BP Sys/Fabian Pulse Ox Last 24 Hr 97.5 F-98.1 F 73-88 12-20 111-130/70-88 95-100 PHYSICAL EXAM GENERAL: The patient is awake, alert, and fully oriented, in no acute distress. HEAD: Normal with no signs of trauma. EYES: PERRL, extraocular movements intact, sclera anicteric, conjunctiva clear. ENT: Ears normal, nares patent, oropharynx clear without exudates, moist mucous membranes. NECK: Trachea midline, full range of motion, supple. LUNGS: Breath sounds equal, clear to auscultation bilaterally, no wheezes, no crackles, no accessory muscle use. HEART: Regular rate and rhythm, S1, S2 without murmur, rub or gallop. ABDOMEN: Soft, nontender, nondistended, normoactive bowel sounds, no guarding, no rebound, no hepatosplenomegaly, no masses. EXTREMITIES: 2+ pulses, warm, well-perfused, no edema. NEUROLOGICAL: Cranial nerves II through XII grossly intact. Normal speech, gait not observed. PSYCH: Normal mood, normal affect. SKIN: Warm, dry, normal turgor, no rashes or lesions noted. LABS Laboratory Results - last 24 hr 03/18/19 03/18/19 03/18/19 22:15 22:15 22:15 WBC 11.4 H RBC 4.85 Hgb 14.6 Hct 43.0 MCV 88.6 MCH 30.0 MCHC 33.9 RDW 14.1 Plt Count 197 D MPV 6.8 L Absolute Neuts (auto) 5.9 Neutrophils % 52.1 D Lymphocytes % 36.7 D Monocytes % 7.6 Eosinophils % 2.9 D Basophils % 0.7 D Nucleated RBC % 0 Platelet Estimate Adequate Platelet Comment Slide scanned PT with INR 11.10 INR 0.94 PTT (Actin FS) 32.0 Sodium 136 Potassium 4.5 Chloride 104 Carbon Dioxide 24 Anion Gap 8 BUN 29.4 H Creatinine 1.7 H Est GFR (CKD-EPI)AfAm 49.70 Est GFR (CKD-EPI)NonAf 42.88 POC Glucometer Random Glucose 251 H Calcium 8.4 L Phosphorus 4.5 Magnesium 2.1 Total Bilirubin 0.3 AST 18 ALT 21 Alkaline Phosphatase 102 Creatine Kinase Troponin I < 0.02 B-Natriuretic Peptide 335.7 H Total Protein 6.5 Albumin 3.2 L TSH 4.90 H Free T4 Salicylates Acetaminophen Alcohol, Quantitative 03/18/19 03/19/19 03/19/19 22:15 00:08 05:50 WBC RBC Hgb Hct MCV MCH MCHC RDW Plt Count MPV Absolute Neuts (auto) Neutrophils % Lymphocytes % Monocytes % Eosinophils % Basophils % Nucleated RBC % Platelet Estimate Platelet Comment PT with INR INR PTT (Actin FS) Sodium 137 Potassium 4.8 Chloride 103 Carbon Dioxide 28 Anion Gap 6 L BUN 32.5 H Creatinine 1.7 H Est GFR (CKD-EPI)AfAm 49.70 Est GFR (CKD-EPI)NonAf 42.88 POC Glucometer Random Glucose 227 H Calcium 8.3 L Phosphorus 5.6 H Magnesium 1.9 Total Bilirubin AST ALT Alkaline Phosphatase Creatine Kinase 80 Troponin I B-Natriuretic Peptide Total Protein Albumin TSH Free T4 1.11 Salicylates 2.3 L Acetaminophen < 2.0 L Alcohol, Quantitative < 3.0 03/19/19 03/19/19 05:50 06:31 WBC 8.2 RBC 4.61 Hgb 14.1 Hct 40.9 MCV 88.6 MCH 30.6 MCHC 34.5 RDW 14.0 Plt Count MPV 6.8 L Absolute Neuts (auto) 4.4 Neutrophils % 53.3 Lymphocytes % 35.6 Monocytes % 7.5 Eosinophils % 3.1 Basophils % 0.5 Nucleated RBC % 0 Platelet Estimate Adequate Platelet Comment PT with INR INR PTT (Actin FS) Sodium Potassium Chloride Carbon Dioxide Anion Gap BUN Creatinine Est GFR (CKD-EPI)AfAm Est GFR (CKD-EPI)NonAf POC Glucometer 210 Random Glucose Calcium Phosphorus Magnesium Total Bilirubin AST ALT Alkaline Phosphatase Creatine Kinase Troponin I B-Natriuretic Peptide Total Protein Albumin TSH Free T4 Salicylates Acetaminophen Alcohol, Quantitative HOSPITAL COURSE: Date of Admission:03/19/19 Date of Discharge: 03/19/19 Patient signed AMA form without being seen while in ED. evaluated the patient since patient was in Ed. holding area. Minutes to complete discharge: 10 Discharge Summary Reason For Visit: AMS, CHRONIC OBSTRUCTIVE PULMONARY DISEASE Condition: Stable - Instructions - Home Medications Comprehensive Discharge Medication List: Ambulatory Orders Albuterol Sulfate Inhaler - [Ventolin HFA Inhaler -] 2 inh PO Q6H 04/12/15 Aspirin [ASA -] 81 mg PO DAILY 04/12/15 Doxazosin Mesylate 8 mg PO DAILY 04/12/15 Fluoxetine HCl [Prozac] 80 mg PO DAILY 04/12/15 Insulin Glargine,Hum.rec.anlog [Lantus (nf)] 30 units SQ HS 04/12/15 Insulin Lispro [Humalog] 100 unit SQ ASDIR 04/12/15 Ipratropium [place] [Atrovent Hfa] 12.9 gm IH DAILY PRN 04/12/15 Warfarin Sodium [Coumadin] 7 mg PO DAILY 04/12/15 metFORMIN HCL [Glucophage -] 1,000 mg PO BID 04/12/15 Atorvastatin Ca [Lipitor -] 10 mg PO HS 08/27/15 Cefuroxime Axetil [Ceftin] 500 mg PO BID #10 tablet 08/27/15 Cefuroxime Axetil [Cefuroxime] 500 mg PO BID 08/27/15 Clonazepam 1 mg PO TID 08/27/15 Enoxaparin Sodium [Lovenox] 80 mg SQ Q12H 08/27/15 Fluticasone/Salmeterol [Advair 250-50 Diskus] 1 each IH BID 08/27/15 Oxycodone HCl/Acetaminophen [Percocet 10-325 mg Tablet -] 1 - 2 tab PO Q4H 08/27 Oxycodone HCl/Acetaminophen [Percocet 5-325 mg Tablet -] 1 tab PO Q4H PRN #20 tablet 08/27/15 Tiotropium [place] [Spiriva -] 1 inh PO DAILY 08/27/15 This patient is new to me today: Yes Date on this admission: 03/19/19 Emergency Visit: No Critical Care patient: No - Discharge Referral Referred to [facility] No
--- NOTE | 2019-03-19 08:47 | EKG ---
Test Reason : Blood Pressure : / mmHG Vent. Rate : 080 BPM Atrial Rate : 080 BPM P-R Int : 148 ms QRS Dur : 092 ms QT Int : 400 ms P-R-T Axes : 070 -22 079 degrees QTc Int : 461 ms NORMAL SINUS RHYTHM NORMAL ECG WHEN COMPARED WITH ECG OF 26-JUN-2018 19:14, NO SIGNIFICANT CHANGE WAS FOUND Confirmed by JOSELIN HARDY, MAIRANA ([id number]) on 03/19/2019 8:46:48 AM Referred By: Confirmed By:MARIANA OLIVERA MD
[2019-03-19 10:05] LABS: VENOUS PC02 50.8 mmHg (41-51); VENOUS PH 7.28 (7.31-7.41)
== END 2019-03-19 08:17 | disposition left against medical advice (07) ==
LOC: JER 21:28 → JERBED 03-19 04:37 → INTOOBSV 03-19 04:37 → UNDOADMOB 03-19 04:37 → JERBED 03-19 05:16
PROVIDERS: ADMIT Internal Medicine; ATTEND Internal Medicine
PROC: 3E0337Z Introduction of Electrolytic and Water Balance Substance into Peripheral Vein, Percutaneous Approach (ICD-10-PCS; principal; 2019-03-19)
PROC: 3E013VG Introduction of Insulin into Subcutaneous Tissue, Percutaneous Approach (ICD-10-PCS; 2019-03-19)
PROC: 3E013GC Introduction of Other Therapeutic Substance into Subcutaneous Tissue, Percutaneous Approach (ICD-10-PCS; 2019-03-19)
PROC: 3E0F7GC Introduction of Other Therapeutic Substance into Respiratory Tract, Via Natural or Artificial Opening (ICD-10-PCS; 2019-03-19)
DX: R41.82 Altered mental status, unspecified (principal); F11.120 Opioid abuse with intoxication, uncomplicated; J44.9 Chronic obstructive pulmonary disease, unspecified; I10 Essential (primary) hypertension; E78.5 Hyperlipidemia, unspecified; E11.9 Type 2 diabetes mellitus without complications; I25.10 Atherosclerotic heart disease of native coronary artery without angina pectoris; E88.09 Other disorders of plasma-protein metabolism, not elsewhere classified; M54.5 Low back pain; G89.29 Other chronic pain; M48.00 Spinal stenosis, site unspecified; I25.2 Old myocardial infarction; F17.210 Nicotine dependence, cigarettes, uncomplicated; N17.9 Acute kidney failure, unspecified; Z79.4 Long term (current) use of insulin; Z79.01 Long term (current) use of anticoagulants; Z95.1 Presence of aortocoronary bypass graft; Z86.718 Personal history of other venous thrombosis and embolism; Z95.828 Presence of other vascular implants and grafts; Z91.013 Allergy to seafood; Z79.84 Long term (current) use of oral hypoglycemic drugs; Z79.82 Long term (current) use of aspirin; Z91.040 Latex allergy status
CPT/HCPCS: 36415; 70450-TC; 71045-TC-FY; 80048; 80053; 80307; 82550; 82803; 82962; 83735; 83880; 84100; 84439; 84443; 84484; 85025; 85610; 85730; 93005; 93010; 94640; 96372; 99285-25; G0378; J1644; J7030

== ENCOUNTER 2019-05-18 14:37 | Emergency (ER) | payer OTHER ==
[2019-05-18 14:57] VITALS: BP 132/79; PULSE 85; TEMP 97.6; BMI 22.9
--- NOTE | 2019-05-18 15:46 | PDOC ---
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 Described as a pressure like sensation without radiation with 30 minute duration. Relieved after receiving a total of 4x aspirins (81 mg x 4 = 324 mg) and 3x SL nitroglycerin. Currently, the patient has no chest pain. At the time of chest pain, he denies the following symptoms: SOB, headache, nausea, vomiting, abdominal pain, fevers, chills, dysuria, hematuria, back pain. Concurrently, he developed pain in the left elbow on the ventral aspect that is painful and warm to the touch. Denies previous inoculation at the site. Last chest pain requiring nitroglycerin was 7 months ago. Allergies: NKDA Social: Denies substance abuse and alcohol. Endorses tobacco product usage. Past History - Past Medical History Allergies/Adverse Reactions: Allergies Allergy/AdvReac Type Severity Reaction Status Date / Time latex Allergy Severe Difficulty Verified 03/18/19 21:38 Breathing shellfish derived Allergy Verified 03/18/19 21:38 Home Medications: Ambulatory Orders Albuterol Sulfate Inhaler - [Ventolin HFA Inhaler -] 2 inh PO Q6H 04/12/15 Aspirin [ASA -] 81 mg PO DAILY 04/12/15 Doxazosin Mesylate 8 mg PO DAILY 04/12/15 Fluoxetine HCl [Prozac] 80 mg PO DAILY 04/12/15 Insulin Glargine,Hum.rec.anlog [Lantus (nf)] 30 units SQ HS 04/12/15 Insulin Lispro [Humalog] 100 unit SQ ASDIR 04/12/15 Ipratropium [place] [Atrovent Hfa] 12.9 gm IH DAILY PRN 04/12/15 Warfarin Sodium [Coumadin] 7 mg PO DAILY 04/12/15 metFORMIN HCL [Glucophage -] 1,000 mg PO BID 04/12/15 Atorvastatin Ca [Lipitor -] 10 mg PO HS 08/27/15 Cefuroxime Axetil [Ceftin] 500 mg PO BID #10 tablet 08/27/15 Cefuroxime Axetil [Cefuroxime] 500 mg PO BID 08/27/15 Clonazepam 1 mg PO TID 08/27/15 Enoxaparin Sodium [Lovenox] 80 mg SQ Q12H 08/27/15 Fluticasone/Salmeterol [Advair 250-50 Diskus] 1 each IH BID 08/27/15 Oxycodone HCl/Acetaminophen [Percocet 10-325 mg Tablet -] 1 - 2 tab PO Q4H 08/27 Oxycodone HCl/Acetaminophen [Percocet 5-325 mg Tablet -] 1 tab PO Q4H PRN #20 tablet 08/27/15 Tiotropium [place] [Spiriva -] 1 inh PO DAILY 08/27/15 Anemia: No Asthma: Yes Cancer: No Cardiac Disorders: Yes (CAD, [place] 1990 CARDIAC [id number] STENTS) CVA: No COPD: Yes CHF: No Dementia: No Diabetes: Yes (IDDM) GI Disorders: No Disorders: No HTN: Yes Hypercholesterolemia: Yes Liver Disease: No Seizures: No Thyroid Disease: No - Surgical History Abdominal Surgery: No Appendectomy: No Cardiac Surgery: Yes (cardiac cath) Cholecystectomy: No Lung Surgery: No Neurologic Surgery: No Orthopedic Surgery: No - Immunization History Immunization Up to Date: No - Suicide/Smoking/Psychosocial Hx Smoking History: Current every day smoker Have you smoked in the past 12 months: Yes Number of Cigarettes Smoked Daily: 5 Information on smoking cessation initiated: No 'Breaking Loose' booklet given: 08/27/15 Hx Alcohol Use: No Drug/Substance Use Hx: No Substance Use Type: None Hx Substance Use Treatment: No Review of Systems - Review of Systems Able to Perform ROS?: Yes Is the patient limited Khmer proficient: No Constitutional: No: Chills, Diaphoresis, Fever, Weakness HEENTM: No: Eye Pain, Ear Pain, Nose Pain, Throat Pain, Mouth Pain Respiratory: No: Cough, Shortness of Breath, SOB with Exertion, Hemoptysis Cardiac (ROS): Yes: Chest Pain. No: Lightheadedness, Palpitations, Syncope ABD/GI: No: Constipated, Diarrhea, Nausea, Rectal Bleeding, Vomiting, Tarry Stools : No: Burning, Dysuria, Hematuria, Incontinence Musculoskeletal: No: Back Pain, Joint Pain, Neck Pain Integumentary: Yes: Erythema (left elbow). No: Rash Neurological: No: Headache, Tingling, Ataxia Psychiatric: No: Change in Appetite Endocrine: No: Unexplained Weight Gain Hematologic/Lymphatic: No: Anemia *Physical Exam - Vital Signs Last Vital Signs Temp Pulse Resp BP Pulse Ox 97.6 F 85 18 132/79 96 05/18/19 14:54 05/18/19 14:54 05/18/19 14:54 05/18/19 14:54 05/18/19 14:54 - Physical Exam General Appearance: Yes: Nourished, Appropriately Dressed. No: Apparent Distress, Intoxicated HEENT: positive: EOMI, MUKUL, Normal Voice, Symmetrical, Pharynx Normal, Hearing Grossly Normal. negative: Pale Conjunctivae, Scleral Icterus (R), Scleral Icterus (L), Muffled/Hoarse voice, Pharyngeal Erythema, Tonsillar Exudate, Tonsillar Erythema, Nasal Congestion, Rhinorrhea, Sinus Tenderness, Excessive drooling Neck: positive: Trachea midline, Supple. negative: Tender, Lymphadenopathy (R) , Lymphadenopathy (L), Tender lateral, Tender midline Respiratory/Chest: positive: Lungs Clear, Normal Breath Sounds, Other ( sternotomy scar present). negative: Chest Tender, Respiratory Distress, Accessory Muscle Use, Crackles, Rales, Rhonchi, Stridor Cardiovascular: positive: Regular Rhythm, Regular Rate, S1, S2. negative: Systolic Murmur Gastrointestinal/Abdominal: positive: Normal Bowel Sounds, Flat, Soft. negative : Tender, Distended, Guarding Lymphatic: negative: Adenopathy Musculoskeletal: positive: Normal Inspection. negative: CVA Tenderness, Vertebral Tenderness Extremity: positive: Normal Capillary Refill, Normal Range of Motion, Tender ( left antecubital). negative: Normal Inspection (left antecubital mass with overlying erythema without thrill or purulent discharge) Integumentary: positive: Normal Color, Dry, Warm. 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 Initial vitals; Initial Vital Signs Temp Pulse Resp BP Pulse Ox 97.6 F 85 18 132/79 96 05/18/19 14:54 05/18/19 14:54 05/18/19 14:54 05/18/19 14:54 05/18/19 14:54 ddx: patient received SL nitroglycerin x3 and 4x 81 mg aspirin between himself and EMS for chest pain that resolved after administration. Patient has a HEART score of 5. The patient will have a work up of ACS. In addition, the patient presents with a left antecubital pain that is consistent with thrombophlebitis on examination. Will order DVT study to elucidate. Patient will receive 1 inch nitroglycerin paste. Laboratory Tests 05/18/19 05/18/19 05/18/19 16:20 16:20 16:20 WBC 8.5 RBC 4.61 Hgb 13.7 Hct 39.9 MCV 86.6 MCH 29.7 MCHC 34.3 RDW 13.6 Plt Count 160 D MPV 6.8 L Absolute Neuts (auto) 5.1 Neutrophils % 59.7 Lymphocytes % 28.2 D Monocytes % 7.2 Eosinophils % 4.5 Basophils % 0.4 Nucleated RBC % 0 PT with INR 12.80 INR 1.08 Sodium 137 Potassium 4.0 Chloride 104 Carbon Dioxide 28 Anion Gap 5 L BUN 12.6 Creatinine 1.2 Est GFR (CKD-EPI)AfAm 75.72 Est GFR (CKD-EPI)NonAf 65.33 Random Glucose 239 H Calcium 8.8 Total Bilirubin 0.4 AST 11 L ALT 16 Alkaline Phosphatase 90 Creatine Kinase 53 Troponin I < 0.02 Total Protein 6.2 L Albumin 2.9 L troponin was negative and CXR does not show acute processes. EKG does not show active ST elevations or depressions. 05/18/19 19:51 patient eloped. the patient did not reveal that he was leaving to staff. unknown whether the patient still had IV in but one was originally placed in the right forearm. I was able to speak to the patient by the telephone number provided in the chart and he re-presented and it was confirmed by me that the IV in the right arm was indeed out. I asked the patient as to why he left and he stated he did not want to wait any longer and proceeded to exit the department despite my attempts to have him understand the grave risk he is putting himself in. *DC/Admit/Observation/Transfer Diagnosis at time of Disposition: Unknown family medical history, Chest pain, Left arm pain - Discharge Dispostion Disposition: ELOPED Condition at time of disposition: Unchanged/Unknown - Referrals Referrals: Mireya Mcclure MD [Primary Care Provider] - Cristian Bailey MD [Staff Physician] - - Patient Instructions - Post Discharge Activity
--- NOTE | 2019-05-18 15:48 | PDOC ---
Documentation entered by Mallory Mc SCRIBE, acting as scribe for Aravind Gilbert MD. Aravind Gilbert MD: This documentation has been prepared by the scribe, Mallory Mc SCRIBE, under my direction and personally reviewed by me in its entirety. I confirm that the documentation accurately reflects all work, treatment, procedures, and medical decision making performed by me. Attending Attestation - Resident Resident Name: Kenji Bowman - ED Attending Attestation I have performed the following: I have examined & evaluated the patient, The case was reviewed & discussed with the resident, I agree w/resident's findings & plan, Exceptions are as noted - HPI HPI: 05/18/19 17:57 58 y/o male with multiple comorbidities c/o substernal cp relieved by 3 sl ntg. pain was pressure like, constant, w/o prevus similar sxs. - Physicial Exam PE: 05/18/19 15:44 Patient is awake and alert, well-nourished, in no distress Normocephalic, atraumatic PERRLA, EOMI CTA RRR + Left upper extremity erythema and a palpable cord within the antecubital fossa consistent with superficial thrombus phlebitis No focal neurological deficits - Medical Decision Making 05/18/19 15:46 Patient is 58-year-old male with multiple comorbidities who presents with substernal chest pressure which has resolved after administration of 3 sublingual nitroglycerin. Patient also received 325 mg of by mouth aspirin prior to arrival. In the ER, patient is awake and alert, pain free. EKG reveals no evidence of acute ischemia. Patient's heart score is noted to be 5. Will rule out DVT with upper extremity Doppler ultrasound. Will admit for ACS for serial cardiac enzymes, and cardiac evaluation.
[2019-05-18] MEDS ORDERED: NITROGLYCERIN 2% OINTMENT - 1GM PACKET TD ONE (15:52)
[2019-05-18 16:46] LABS: BASO % 0.4 % (0-2.0); EOS % 4.5 % (0-4.5); HEMATOCRIT 39.9 % (35.4-49); HEMOGLOBIN 13.7 GM/dL (11.7-16.9); LYMPH % 28.2 % (8-40); MCH 29.7 pg (25.7-33.7); MCHC 34.3 g/dl (32.0-35.9); MEAN CELL VOLUME 86.6 fl (80-96); MEAN PLT VOLUME 6.8 fl (7.5-11.1); MONO % 7.2 % (3.8-10.2); NEUT % 59.7 % (42.8-82.8); PLATELET COUNT 160 K/MM3 (134-434); RBC 4.61 M/mm3 (4.00-5.60); RDW 13.6 % (11.9-15.9); WHITE BLOOD COUNT 8.5 K/mm3 (4.0-10.0)
[2019-05-18 17:19] LABS: INR 1.08 (0.83-1.09); PROTHROMBIN TIME (PATIENT) 12.8 SEC (9.7-13.0)
[2019-05-18 17:24] LABS: ALBUMIN 2.9 g/dl (3.4-5.0); ALK PHOS 90 U/L (45-117); ANION GAP 5 MMOL/L (8-16); BILIRUBIN,TOTAL 0.4 mg/dL (0.2-1); BLOOD UREA NITROGEN 12.6 mg/dL (7-18); CALCIUM 8.8 mg/dL (8.5-10.1); CHLORIDE 104 mmol/L (98-107); CO2 28 mmol/L (21-32); CREATININE 1.2 mg/dL (0.55-1.3); GLUCOSE,RANDOM 239 mg/dL (74-106); SGOT/AST 11 U/L (15-37); SGPT/ALT 16 U/L (13-61); SODIUM 137 mmol/L (136-145); TOT PROT 6.2 g/dl (6.4-8.2)
--- NOTE | 2019-05-18 23:26 | EKG ---
Test Reason : Blood Pressure : / mmHG Vent. Rate : 085 BPM Atrial Rate : 085 BPM P-R Int : 144 ms QRS Dur : 090 ms QT Int : 358 ms P-R-T Axes : 075 -28 065 degrees QTc Int : 426 ms NORMAL SINUS RHYTHM NORMAL ECG WHEN COMPARED WITH ECG OF 19-MAR-2019 00:19, NO SIGNIFICANT CHANGE WAS FOUND Confirmed by KATHY GARCIA MD ([id number]) on 05/18/2019 11:26:20 PM Referred By: Confirmed By:KATHY GARCIA MD
== END 2019-05-18 19:38 | disposition left against medical advice (07) ==
LOC: JER 14:37
DX: R07.9 Chest pain, unspecified (principal); I25.10 Atherosclerotic heart disease of native coronary artery without angina pectoris; Z98.61 Coronary angioplasty status; I10 Essential (primary) hypertension; F17.210 Nicotine dependence, cigarettes, uncomplicated; Z95.1 Presence of aortocoronary bypass graft; E78.5 Hyperlipidemia, unspecified; E11.9 Type 2 diabetes mellitus without complications; Z79.4 Long term (current) use of insulin; Z86.718 Personal history of other venous thrombosis and embolism; Z86.711 Personal history of pulmonary embolism; Z79.01 Long term (current) use of anticoagulants; Z85.118 Personal history of other malignant neoplasm of bronchus and lung; Z95.828 Presence of other vascular implants and grafts; Z90.2 Acquired absence of lung [part of]
CPT/HCPCS: 36415; 71046-TC-FY; 80053; 82550; 84484; 85025; 85610; 93005; 93010; 99283-25